=== PATIENT | female | born 1965 | race American Indian/Alaskan Native ===

== ENCOUNTER 2022-01-09 08:00 | Outpatient (CLI) | payer OTHER | END 2022-01-09 08:30 | disposition home or self-care (01) | LOC: PPH VACUNA 08:00 | PROVIDERS: ATTEND Emergency Medicine Pediatric Emergency Medicine | DX: Z23 Encounter for immunization (principal) ==

== ENCOUNTER 2022-05-09 07:20 | Emergency (ER) | payer OTHER ==
[~2022-05-09] VITALS: Ht 160 cm; Wt 77.1 kg
[2022-05-09] MEDS ORDERED: MOLNUPIRAVIR (200 MG PO (09:47)
== END 2022-05-09 10:04 ==
LOC: ER 07:20
DX: U07.1 COVID-19 (principal); Z88.6 Allergy status to analgesic agent; Z91.012 Allergy to eggs; Z91.013 Allergy to seafood; Z91.018 Allergy to other foods